=== PATIENT | male | born 1980 | race African-American/Black ===

== ENCOUNTER 2018-06-01 21:59 | Emergency (ER) | payer SELFPAY | END 2018-06-01 23:15 | disposition home or self-care (01) | LOC: ER 23:15 | DX: M54.40 Lumbago with sciatica, unspecified side (principal); I10 Essential (primary) hypertension | CPT/HCPCS: 99283 ==

== ENCOUNTER 2019-11-15 11:09 | Emergency (ER) | payer SELFPAY ==
[~2019-11-15] VITALS: Ht 167.6 cm; Wt 61.2 kg
[~2019-11-15 11:09] MED LIST: METH4TAB2 PO
[2019-11-15] MEDS ORDERED: FAMOTIDINE 20 MG/2 ML VIAL IVP ONE (11:45)
[2019-11-15] MEDS ORDERED: IV NORMAL SALINE 1000ML BAG 1,000 ML IV ONE (11:45)
[2019-11-15] MEDS ORDERED: ONDANSETRON PF 4 MG/2 ML VIAL. IVP ONE (11:45)
[2019-11-15] MEDS ORDERED: MORPHINE SULFATE 10 MG/ML VIAL. IV ONE ×2 (11:45→13:15)
[2019-11-15 11:49] LABS: BASO % 1 % (0-3); EOS % 0 % (0-3); HEMATOCRIT 40.8 % (39.0-53.0); HEMOGLOBIN 14.2 g/dL (13.0-17.5); LYMPH # 1.5 x10^3/uL (1.0-4.8); LYMPH % 30 % (24-48); MEAN CORPUSCULAR HEMOGLOBIN 31 pg (25-35); MEAN CORPUSCULAR HGB CONC 35 g/dL (31-37); MEAN CORPUSCULAR VOLUME 88 fL (79-100); MONO # 0.5 x10^3/uL (0.0-1.1); MONO % 10 % (0-9); NEUT % 59 % (31-73); PLATELET COUNT 298 x10^3/uL (140-400); RED BLOOD COUNT 4.62 x10^6/uL (4.30-5.70); RED CELL DISTRIBUTION WIDTH 13.2 % (11.5-14.5); WHITE BLOOD COUNT 5.1 x10^3/uL (4.0-11.0)
[2019-11-15 11:52] LABS: BILIRUBIN,URINE NEGATIVE (NEG); CLARITY,URINE CLEAR; COLOR,URINE YELLOW; NITRITE,URINE NEGATIVE (NEG); PH,URINE 7.5; PROTEIN,URINE NEGATIVE (NEG-TRACE); UROBILINOGEN,URINE 0.2 mg/dL (0.2 mg/dL)
[2019-11-15 11:55] LABS: SQUAMOUS EPITHELIAL CELL,UR FEW /LPF
[2019-11-15 11:57] LABS: BACTERIA,URINE FEW /HPF (0-FEW); RBC,URINE RARE /HPF (0-2)
[2019-11-15 11:59] LABS: CALCIUM 8.9 mg/dL (8.5-10.1); CREATININE 1.4 mg/dL (0.7-1.3); GFR 67.6
[2019-11-15 12:01] LABS: BARBITURATES NEG (NEG); BENZODIAZEPINES NEG (NEG); CANNABINOIDS POS (NEG); COCAINE NEG (NEG); METHADONE NEG (NEG); OPIATES NEG (NEG); PHENCYCLIDINE NEG (NEG)
[2019-11-15 12:03] LABS: AMPHETAMINE/METHAMPHETAMINE NEG (NEG)
[2019-11-15 12:05] LABS: ALBUMIN 4.5 g/dL (3.4-5.0); TOTAL BILIRUBIN 0.8 mg/dL (0.2-1.0); TOTAL PROTEIN 9.2 g/dL (6.4-8.2)
[2019-11-15] MEDS ORDERED: IOHEXOL 300 MG/ML 100ML VIAL. IV ONE (12:15)
[2019-11-15 12:21] LABS: INFLUENZA A PATIENT NEGATIVE (NEGATIVE); INFLUENZA B PATIENT NEGATIVE (NEGATIVE)
--- NOTE | 2019-11-15 12:53 | RAD ---
Examination: CT of the abdomen pelvis with IV contrast HISTORY: History of abdominal pain COMPARISON: 03/12/2016 TECHNIQUE: Axial CT images of the abdomen pelvis were performed with IV contrast. Coronal and sagittal reformats are performed Exposure: One or more of the following individualized dose reduction techniques were utilized for this examination: 1. Automated exposure control 2. Adjustment of the mA and/or kV according to patient size 3. Use of iterative reconstruction technique FINDINGS: Minimal right lung base atelectasis. No evidence of free air identified in the abdomen. The liver, spleen, adrenals grossly appears unremarkable. The gallbladder is mildly distended. The stomach is mildly distended. The visualized pancreas grossly appears unremarkable. The small bowel is nondilated. Moderate thickened appearance of the wall of the colon throughout with surrounding mild fat stranding. The appendix is not identified. The bilateral kidneys enhance symmetrically. Cystic density identified in the left kidney measuring 1.6 cm probably a cyst. No evidence of lytic bony destructive lesion. IMPRESSION: 1. Moderate thickened appearance of the wall of the colon throughout with surrounding fat stranding likely diffuse colitis. Electronically signed by: Demetri To MD (11/15/2019 12:50 PM) [facility]
[2019-11-15] MEDS ORDERED: CIPROFLOXACIN 400MG PREMIX 200 ML IV ONE (13:15)
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
[2019-11-15] MEDS ORDERED: HYDR-3164 PO (13:58)
[2019-11-15] MEDS ORDERED: CIPR500T94 PO (13:58)
[2019-11-15] MEDS ORDERED: ONDA4TAB12 PO (13:58)
[2019-11-15] MEDS ORDERED: METR500T PO (13:58)
[2019-11-15] MEDS ORDERED: DICY20TA3 PO (13:58)
[2019-11-15] MEDS ORDERED: PROCHLORPERAZINE 10 MG/2 ML VIAL. IV ONE (14:30)
[2019-11-15 15:15] VITALS: BP 122/78
== END 2019-11-15 15:37 | disposition home or self-care (01) ==
LOC: ER 11:09
DX: K52.9 Noninfective gastroenteritis and colitis, unspecified (principal); R11.2 Nausea with vomiting, unspecified; R19.7 Diarrhea, unspecified; R68.83 Chills (without fever); R05 Cough; R10.84 Generalized abdominal pain; I10 Essential (primary) hypertension; Z90.89 Acquired absence of other organs; Z98.890 Other specified postprocedural states; Z79.899 Other long term (current) drug therapy
CPT/HCPCS: 36415; 74177; 80053; 80307; 81001; 83690; 85025; 87804; 96361; 96365; 96367; 96375; 96376; 99285; G0480; J0744; J0780; J2270; J2405; J3490; J7030; Q9967

== ENCOUNTER 2019-11-17 10:15 | Inpatient (IN) | payer SELFPAY ==
[~2019-11-17] VITALS: Ht 160 cm; Wt 60.4 kg
[~2019-11-17 10:15] MED LIST changes: +CIPR500T94 PO; +DICY20TA3 PO; +HYDR-3164 PO; +METR500T PO; +ONDA4TAB12 PO
[2019-11-17 11:03] LABS: BILIRUBIN,URINE NEGATIVE (NEG); CLARITY,URINE CLEAR; COLOR,URINE YELLOW; NITRITE,URINE NEGATIVE (NEG); PROTEIN,URINE NEGATIVE (NEG-TRACE)
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
[2019-11-17 11:09] LABS: BACTERIA,URINE 0 /HPF (0-FEW); RBC,URINE 0 /HPF (0-2); SQUAMOUS EPITHELIAL CELL,UR OCC /LPF; WBC,URINE RARE /HPF (0-4)
[2019-11-17 11:12] LABS: AMPHETAMINE/METHAMPHETAMINE NEG (NEG); BARBITURATES NEG (NEG); BENZODIAZEPINES NEG (NEG); CANNABINOIDS POS (NEG); COCAINE NEG (NEG); METHADONE NEG (NEG); OPIATES NEG (NEG); PHENCYCLIDINE NEG (NEG)
[2019-11-17 11:36] LABS: CREATININE 1.4 mg/dL (0.7-1.3); GFR 67.6; POTASSIUM 4.2 mmol/L (3.5-5.1)
[2019-11-17 11:42] LABS: ALBUMIN 4.5 g/dL (3.4-5.0); TOTAL BILIRUBIN 0.9 mg/dL (0.2-1.0); TOTAL PROTEIN 8.8 g/dL (6.4-8.2)
[2019-11-17 11:43] LABS: BASO % 1 % (0-3); EOS % 0 % (0-3); HEMATOCRIT 38.3 % (39.0-53.0); HEMOGLOBIN 13.5 g/dL (13.0-17.5); LYMPH # 1.7 x10^3/uL (1.0-4.8); LYMPH % 30 % (24-48); MEAN CORPUSCULAR HEMOGLOBIN 31 pg (25-35); MEAN CORPUSCULAR HGB CONC 35 g/dL (31-37); MEAN CORPUSCULAR VOLUME 88 fL (79-100); MONO # 0.6 x10^3/uL (0.0-1.1); MONO % 11 % (0-9); NEUT # 3.2 x10^3/uL (1.8-7.7); NEUT % 59 % (31-73); PLATELET COUNT 334 x10^3/uL (140-400); RED BLOOD COUNT 4.34 x10^6/uL (4.30-5.70); RED CELL DISTRIBUTION WIDTH 12.8 % (11.5-14.5); WHITE BLOOD COUNT 5.5 x10^3/uL (4.0-11.0)
[2019-11-17] MEDS ORDERED: CIPROFLOXACIN 400MG PREMIX 200 ML IV ONE (11:45)
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
[2019-11-17] MEDS ORDERED: IV NORMAL SALINE 1000ML BAG 1,000 ML IV ONE (13:45)
[2019-11-17] MEDS ORDERED: fentaNYL PF VIAL 100 MCG/2 ML VIAL IV PRN (13:45)
[2019-11-17] MEDS ORDERED: ACETAMINOPHEN 325 MG TABLET. PO PRN (13:45)
[2019-11-17] MEDS ORDERED: ONDANSETRON PF 4 MG/2 ML VIAL. IV PRN (13:45)
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
[2019-11-17] MEDS ORDERED: LISI1TAB20 PO (16:29)
--- NOTE | 2019-11-17 16:47 | RAD ---
Examination: Frontal view of the abdomen HISTORY: History of vomiting, abdominal pain, colitis. COMPARISON: None available Findings/ impression: The stomach is mildly distended with air. Air is identified throughout the colon. The bowel gas pattern appears unremarkable. Electronically signed by: Demetri To MD (11/17/2019 4:44 PM) [id number]
[2019-11-17] MEDS: IV 1/2 NORMAL SALINE 1,000 ML IV SCH (17:47)
[2019-11-17 19:00] VITALS: BP 109/66
[2019-11-17] MEDS: CIPROFLOXACIN 400MG PREMIX 200 ML IV SCH (21:17)
[2019-11-17] MEDS: FAMOTIDINE 20 MG/2 ML VIAL IVP SCH (21:17)
[2019-11-17 23:00] VITALS: BP 115/85
[2019-11-18 03:00] VITALS: BP 121/70
[2019-11-18 04:53] LABS: BASO % 1 % (0-3); EOS % 1 % (0-3); HEMATOCRIT 37.5 % (39.0-53.0); HEMOGLOBIN 12.9 g/dL (13.0-17.5); LYMPH # 1.6 x10^3/uL (1.0-4.8); LYMPH % 33 % (24-48); MEAN CORPUSCULAR HEMOGLOBIN 31 pg (25-35); MEAN CORPUSCULAR HGB CONC 34 g/dL (31-37); MEAN CORPUSCULAR VOLUME 90 fL (79-100); MONO # 0.6 x10^3/uL (0.0-1.1); MONO % 13 % (0-9); NEUT # 2.6 x10^3/uL (1.8-7.7); NEUT % 53 % (31-73); PLATELET COUNT 320 x10^3/uL (140-400); RED BLOOD COUNT 4.19 x10^6/uL (4.30-5.70); RED CELL DISTRIBUTION WIDTH 12.9 % (11.5-14.5); WHITE BLOOD COUNT 4.9 x10^3/uL (4.0-11.0)
[2019-11-18 05:07] LABS: CALCIUM 8.7 mg/dL (8.5-10.1); CREATININE 1.4 mg/dL (0.7-1.3); GFR 67.6
[2019-11-18] MEDS: IV 1/2 NORMAL SALINE 1,000 ML IV SCH ×2 (05:33→19:40)
[2019-11-18 07:00] VITALS: BP 120/75
[2019-11-18] MEDS ORDERED: HYDROcodone/APAP 5/325MG 1 TAB TABLET PO PRN (07:45)
[2019-11-18] MEDS ORDERED: ONDANSETRON ODT 4 MG TAB.RAPDIS. PO PRN (07:45)
[2019-11-18] MEDS ORDERED: MORPHINE SULFATE 2 MG/ML VIAL. IV PRN (07:45)
[2019-11-18] MEDS ORDERED: ACETAMINOPHEN/CODEINE 300/30MG TABLET. PO PRN (07:45)
[2019-11-18] MEDS ORDERED: ACETAMINOPHEN 500 MG TABLET PO PRN (07:45)
--- NOTE | 2019-11-18 09:09 | PDOC ---
PROGRESS NOTES Chief Complaint Chief Complaint COlitis, 1st episode FAm HX crohs and COLON CA - no hx personal c scope Daily marijuana use, etoh occ History of Present Illness History of Present Illness FEels better On CLD but no order tray yet NO pain On IV flagyl and IV abx PLAN: Await GI rounds, upgrade diet? Home tmr goal LAbs ok, add esr Vitals Vitals Vital Signs Date Time Temp Pulse Resp B/P (MAP) Pulse Ox O2 Delivery O2 Flow Rate FiO2 11/18/19 07:00 99.0 68 18 120/75 (90) 98 Room Air 99.0 Physical Exam General: Alert, Oriented X3, Cooperative, No acute distress Heart: Regular rate, Normal S1, Normal S2, No murmurs Lungs: Clear Abdomen: Normal bowel sounds, Soft, No tenderness Extremities: No clubbing, No cyanosis, No edema Skin: No rashes, No breakdown Labs LABS Laboratory Tests Test 11/17/19 10:45 11/17/19 11:15 11/18/19 04:30 Urine Collection Type Void Urine Color Yellow Urine Clarity Clear Urine pH 7.0 Urine Specific [place] 1.015 Urine Protein Negative mg/dL (NEG-TRACE) Urine Glucose (UA) Negative mg/dL (NEG) Urine Ketones (Stick) 15 mg/dL (NEG) Urine Blood Negative (NEG) Urine Nitrite Negative (NEG) Urine Bilirubin Negative (NEG) Urine Urobilinogen Dipstick 1.0 mg/dL (0.2 mg/dL) Urine Leukocyte Esterase Negative (NEG) Urine RBC 0 /HPF (0-2) Urine WBC Rare /HPF (0-4) Urine Squamous Epithelial Cells Occ /LPF Urine Bacteria 0 /HPF (0-FEW) Urine Opiates Screen Neg (NEG) Urine Methadone Screen Neg (NEG) Urine Barbiturates Neg (NEG) Urine Phencyclidine Screen Neg (NEG) Urine Amphetamine/Methamphetamine Neg (NEG) Urine Benzodiazepines Screen Neg (NEG) Urine Cocaine Screen Neg (NEG) Urine Cannabinoids Screen Pos (NEG) Urine Ethyl Alcohol Neg (NEG) White Blood Count 5.5 x10^3/uL (4.0-11.0) 4.9 x10^3/uL (4.0-11.0) Red Blood Count 4.34 x10^6/uL (4.30-5.70) 4.19 x10^6/uL (4.30-5.70) Hemoglobin 13.5 g/dL (13.0-17.5) 12.9 g/dL (13.0-17.5) Hematocrit 38.3 % (39.0-53.0) 37.5 % (39.0-53.0) Mean Corpuscular Volume 88 fL (79-100) 90 fL (79-100) Mean Corpuscular Hemoglobin 31 pg (25-35) 31 pg (25-35) Mean Corpuscular Hemoglobin Concent 35 g/dL (31-37) 34 g/dL (31-37) Red Cell Distribution Width 12.8 % (11.5-14.5) 12.9 % (11.5-14.5) Platelet Count 334 x10^3/uL (140-400) 320 x10^3/uL (140-400) Neutrophils (%) (Auto) 59 % (31-73) 53 % (31-73) Lymphocytes (%) (Auto) 30 % (24-48) 33 % (24-48) Monocytes (%) (Auto) 11 % (0-9) 13 % (0-9) Eosinophils (%) (Auto) 0 % (0-3) 1 % (0-3) Basophils (%) (Auto) 1 % (0-3) 1 % (0-3) Neutrophils # (Auto) 3.2 x10^3/uL (1.8-7.7) 2.6 x10^3/uL (1.8-7.7) Lymphocytes # (Auto) 1.7 x10^3/uL (1.0-4.8) 1.6 x10^3/uL (1.0-4.8) Monocytes # (Auto) 0.6 x10^3/uL (0.0-1.1) 0.6 x10^3/uL (0.0-1.1) Eosinophils # (Auto) 0.0 x10^3/uL (0.0-0.7) 0.0 x10^3/uL (0.0-0.7) Basophils # (Auto) 0.0 x10^3/uL (0.0-0.2) 0.0 x10^3/uL (0.0-0.2) Sodium Level 134 mmol/L (136-145) 135 mmol/L (136-145) Potassium Level 4.2 mmol/L (3.5-5.1) 4.0 mmol/L (3.5-5.1) Chloride Level 95 mmol/L (98-107) 98 mmol/L (98-107) Carbon Dioxide Level 29 mmol/L (21-32) 27 mmol/L (21-32) Anion Gap 10 (6-14) 10 (6-14) Blood Urea Nitrogen 16 mg/dL (8-26) 13 mg/dL (8-26) Creatinine 1.4 mg/dL (0.7-1.3) 1.4 mg/dL (0.7-1.3) Estimated GFR (Cockcroft-Gault) 67.6 67.6 BUN/Creatinine Ratio 11 (6-20) Glucose Level 94 mg/dL (70-99) 96 mg/dL (70-99) Calcium Level 9.0 mg/dL (8.5-10.1) 8.7 mg/dL (8.5-10.1) Total Bilirubin 0.9 mg/dL (0.2-1.0) Aspartate Amino Transf (AST/SGOT) 30 U/L (15-37) Alanine Aminotransferase (ALT/SGPT) 32 U/L (16-63) Alkaline Phosphatase 52 U/L (46-116) Total Protein 8.8 g/dL (6.4-8.2) Albumin 4.5 g/dL (3.4-5.0) Albumin/Globulin Ratio 1.0 (1.0-1.7) Lipase 172 U/L (73-393) Ethyl Alcohol Level < 10 mg/dL (0-10) Review of Systems Review of Systems minimal abd pain , no nause emesis, no fevers Assessment and Plan Assessmemt and Plan Problems Medical Problems: (1) Acute colitis Status: Acute Comment Review of Relevant I have reviewed the following items trey (where applicable) has been applied. Labs Laboratory Tests Test 11/17/19 10:45 11/17/19 11:15 11/18/19 04:30 Urine Collection Type Void Urine Color Yellow Urine Clarity Clear Urine pH 7.0 Urine Specific [place] 1.015 Urine Protein Negative mg/dL (NEG-TRACE) Urine Glucose (UA) Negative mg/dL (NEG) Urine Ketones (Stick) 15 mg/dL (NEG) Urine Blood Negative (NEG) Urine Nitrite Negative (NEG) Urine Bilirubin Negative (NEG) Urine Urobilinogen Dipstick 1.0 mg/dL (0.2 mg/dL) Urine Leukocyte Esterase Negative (NEG) Urine RBC 0 /HPF (0-2) Urine WBC Rare /HPF (0-4) Urine Squamous Epithelial Cells Occ /LPF Urine Bacteria 0 /HPF (0-FEW) Urine Opiates Screen Neg (NEG) Urine Methadone Screen Neg (NEG) Urine Barbiturates Neg (NEG) Urine Phencyclidine Screen Neg (NEG) Urine Amphetamine/Methamphetamine Neg (NEG) Urine Benzodiazepines Screen Neg (NEG) Urine Cocaine Screen Neg (NEG) Urine Cannabinoids Screen Pos (NEG) Urine Ethyl Alcohol Neg (NEG) White Blood Count 5.5 x10^3/uL (4.0-11.0) 4.9 x10^3/uL (4.0-11.0) Red Blood Count 4.34 x10^6/uL (4.30-5.70) 4.19 x10^6/uL (4.30-5.70) Hemoglobin 13.5 g/dL (13.0-17.5) 12.9 g/dL (13.0-17.5) Hematocrit 38.3 % (39.0-53.0) 37.5 % (39.0-53.0) Mean Corpuscular Volume 88 fL (79-100) 90 fL (79-100) Mean Corpuscular Hemoglobin 31 pg (25-35) 31 pg (25-35) Mean Corpuscular Hemoglobin Concent 35 g/dL (31-37) 34 g/dL (31-37) Red Cell Distribution Width 12.8 % (11.5-14.5) 12.9 % (11.5-14.5) Platelet Count 334 x10^3/uL (140-400) 320 x10^3/uL (140-400) Neutrophils (%) (Auto) 59 % (31-73) 53 % (31-73) Lymphocytes (%) (Auto) 30 % (24-48) 33 % (24-48) Monocytes (%) (Auto) 11 % (0-9) 13 % (0-9) Eosinophils (%) (Auto) 0 % (0-3) 1 % (0-3) Basophils (%) (Auto) 1 % (0-3) 1 % (0-3) Neutrophils # (Auto) 3.2 x10^3/uL (1.8-7.7) 2.6 x10^3/uL (1.8-7.7) Lymphocytes # (Auto) 1.7 x10^3/uL (1.0-4.8) 1.6 x10^3/uL (1.0-4.8) Monocytes # (Auto) 0.6 x10^3/uL (0.0-1.1) 0.6 x10^3/uL (0.0-1.1) Eosinophils # (Auto) 0.0 x10^3/uL (0.0-0.7) 0.0 x10^3/uL (0.0-0.7) Basophils # (Auto) 0.0 x10^3/uL (0.0-0.2) 0.0 x10^3/uL (0.0-0.2) Sodium Level 134 mmol/L (136-145) 135 mmol/L (136-145) Potassium Level 4.2 mmol/L (3.5-5.1) 4.0 mmol/L (3.5-5.1) Chloride Level 95 mmol/L (98-107) 98 mmol/L (98-107) Carbon Dioxide Level 29 mmol/L (21-32) 27 mmol/L (21-32) Anion Gap 10 (6-14) 10 (6-14) Blood Urea Nitrogen 16 mg/dL (8-26) 13 mg/dL (8-26) Creatinine 1.4 mg/dL (0.7-1.3) 1.4 mg/dL (0.7-1.3) Estimated GFR (Cockcroft-Gault) 67.6 67.6 BUN/Creatinine Ratio 11 (6-20) Glucose Level 94 mg/dL (70-99) 96 mg/dL (70-99) Calcium Level 9.0 mg/dL (8.5-10.1) 8.7 mg/dL (8.5-10.1) Total Bilirubin 0.9 mg/dL (0.2-1.0) Aspartate Amino Transf (AST/SGOT) 30 U/L (15-37) Alanine Aminotransferase (ALT/SGPT) 32 U/L (16-63) Alkaline Phosphatase 52 U/L (46-116) Total Protein 8.8 g/dL (6.4-8.2) Albumin 4.5 g/dL (3.4-5.0) Albumin/Globulin Ratio 1.0 (1.0-1.7) Lipase 172 U/L (73-393) Ethyl Alcohol Level < 10 mg/dL (0-10) Laboratory Tests Test 11/17/19 10:45 11/17/19 11:15 11/18/19 04:30 Urine Collection Type Void Urine Color Yellow Urine Clarity Clear Urine pH 7.0 Urine Specific [place] 1.015 Urine Protein Negative mg/dL (NEG-TRACE) Urine Glucose (UA) Negative mg/dL (NEG) Urine Ketones (Stick) 15 mg/dL (NEG) Urine Blood Negative (NEG) Urine Nitrite Negative (NEG) Urine Bilirubin Negative (NEG) Urine Urobilinogen Dipstick 1.0 mg/dL (0.2 mg/dL) Urine Leukocyte Esterase Negative (NEG) Urine RBC 0 /HPF (0-2) Urine WBC Rare /HPF (0-4) Urine Squamous Epithelial Cells Occ /LPF Urine Bacteria 0 /HPF (0-FEW) Urine Opiates Screen Neg (NEG) Urine Methadone Screen Neg (NEG) Urine Barbiturates Neg (NEG) Urine Phencyclidine Screen Neg (NEG) Urine Amphetamine/Methamphetamine Neg (NEG) Urine Benzodiazepines Screen Neg (NEG) Urine Cocaine Screen Neg (NEG) Urine Cannabinoids Screen Pos (NEG) Urine Ethyl Alcohol Neg (NEG) White Blood Count 5.5 x10^3/uL (4.0-11.0) 4.9 x10^3/uL (4.0-11.0) Red Blood Count 4.34 x10^6/uL (4.30-5.70) 4.19 x10^6/uL (4.30-5.70) Hemoglobin 13.5 g/dL (13.0-17.5) 12.9 g/dL (13.0-17.5) Hematocrit 38.3 % (39.0-53.0) 37.5 % (39.0-53.0) Mean Corpuscular Volume 88 fL (79-100) 90 fL (79-100) Mean Corpuscular Hemoglobin 31 pg (25-35) 31 pg (25-35) Mean Corpuscular Hemoglobin Concent 35 g/dL (31-37) 34 g/dL (31-37) Red Cell Distribution Width 12.8 % (11.5-14.5) 12.9 % (11.5-14.5) Platelet Count 334 x10^3/uL (140-400) 320 x10^3/uL (140-400) Neutrophils (%) (Auto) 59 % (31-73) 53 % (31-73) Lymphocytes (%) (Auto) 30 % (24-48) 33 % (24-48) Monocytes (%) (Auto) 11 % (0-9) 13 % (0-9) Eosinophils (%) (Auto) 0 % (0-3) 1 % (0-3) Basophils (%) (Auto) 1 % (0-3) 1 % (0-3) Neutrophils # (Auto) 3.2 x10^3/uL (1.8-7.7) 2.6 x10^3/uL (1.8-7.7) Lymphocytes # (Auto) 1.7 x10^3/uL (1.0-4.8) 1.6 x10^3/uL (1.0-4.8) Monocytes # (Auto) 0.6 x10^3/uL (0.0-1.1) 0.6 x10^3/uL (0.0-1.1) Eosinophils # (Auto) 0.0 x10^3/uL (0.0-0.7) 0.0 x10^3/uL (0.0-0.7) Basophils # (Auto) 0.0 x10^3/uL (0.0-0.2) 0.0 x10^3/uL (0.0-0.2) Sodium Level 134 mmol/L (136-145) 135 mmol/L (136-145) Potassium Level 4.2 mmol/L (3.5-5.1) 4.0 mmol/L (3.5-5.1) Chloride Level 95 mmol/L (98-107) 98 mmol/L (98-107) Carbon Dioxide Level 29 mmol/L (21-32) 27 mmol/L (21-32) Anion Gap 10 (6-14) 10 (6-14) Blood Urea Nitrogen 16 mg/dL (8-26) 13 mg/dL (8-26) Creatinine 1.4 mg/dL (0.7-1.3) 1.4 mg/dL (0.7-1.3) Estimated GFR (Cockcroft-Gault) 67.6 67.6 BUN/Creatinine Ratio 11 (6-20) Glucose Level 94 mg/dL (70-99) 96 mg/dL (70-99) Calcium Level 9.0 mg/dL (8.5-10.1) 8.7 mg/dL (8.5-10.1) Total Bilirubin 0.9 mg/dL (0.2-1.0) Aspartate Amino Transf (AST/SGOT) 30 U/L (15-37) Alanine Aminotransferase (ALT/SGPT) 32 U/L (16-63) Alkaline Phosphatase 52 U/L (46-116) Total Protein 8.8 g/dL (6.4-8.2) Albumin 4.5 g/dL (3.4-5.0) Albumin/Globulin Ratio 1.0 (1.0-1.7) Lipase 172 U/L (73-393) Ethyl Alcohol Level < 10 mg/dL (0-10) Medications Current Medications Metronidazole 100 ml @ 100 mls/hr Q8HRS IV Last administered on 11/17/19at 13:41; Start 11/17/19 at 14:00; Stop 11/17/19 at 14:15; Status DC Ciprofloxacin/ Dextrose 200 ml @ 200 mls/hr 1X ONCE IV Last administered on 11/17/19at 14:49; Start 11/17/19 at 11:45; Stop 11/17/19 at 12:44; Status DC Ondansetron HCl (Zofran) 4 mg PRN Q8HRS PRN IV NAUSEA/VOMITING Last administered on 11/17/19at 22:02; Start 11/17/19 at 13:45; Stop 11/18/19 at 13:44 Fentanyl Citrate (Fentanyl 2ml Vial) 50 mcg PRN Q1HR PRN IV PAIN; Start 11/17/19 at 13:45; Stop 11/18/19 at 07:46; Status DC Acetaminophen (Tylenol) 650 mg PRN Q4HRS PRN PO FEVER; Start 11/17/19 at 13:45; Stop 11/18/19 at 07:45; Status DC Sodium Chloride 1,000 ml @ 100 mls/hr 1X ONCE IV ; Start 11/17/19 at 13:45; Stop 11/17/19 at 23:44; Status DC Famotidine (Pepcid Vial) 20 mg BID IVP Last administered on 11/17/19at 21:17; Start 11/17/19 at 21:00 Ciprofloxacin/ Dextrose 200 ml @ 200 mls/hr Q12HR IV Last administered on 11/17/19at 21:17; Start 11/17/19 at 21:00 Metronidazole 100 ml @ 100 mls/hr Q8HRS IV Last administered on 11/18/19at 05:33; Start 11/17/19 at 22:00 Sodium Chloride 1,000 ml @ 75 mls/hr [id number] IV Last administered on 11/18/19at 05:33; Start 11/17/19 at 17:00 Acetaminophen/ Codeine Phosphate (Tylenol #3) 1 tab PRN Q6HRS PRN PO MODERATE PAIN; Start 11/18/19 at 07:45 Acetaminophen (Tylenol) 500 mg PRN Q6HRS PRN PO MILD PAIN / TEMP; Start 11/18/19 at 07:45 Morphine Sulfate (Morphine Sulfate) 2 mg PRN Q2HR PRN IV PAIN; Start 11/18/19 at 07:45 Acetaminophen/ Hydrocodone Bitart (Lortab 5/325) 1 tab PRN Q6HRS PRN PO SEVERE PAIN; Start 11/18/19 at 07:45 Ondansetron HCl (Zofran Odt) 4 mg TID PRN PO NAUSEA/VOMITING; Start 11/18/19 at 07:45 Dicyclomine HCl (Bentyl) 20 mg TID PO ; Start 11/18/19 at 09:00 Lisinopril (Prinivil) 20 mg DAILY PO ; Start 11/18/19 at 09:00 Hydrochlorothiazide (Hydrodiuril) 25 mg DAILY PO ; Start 11/18/19 at 09:00 Active Scripts Active Dicyclomine Hcl 20 Mg Tablet 1 Tab PO TID Ondansetron Odt (Ondansetron) 4 Mg Tab.rapdis 1 Tab PO PRN Q6-8HRS [place] 5-325 Tablet (Acetaminophen/Hydrocodone Bitart) 1 Each Tablet 1 Tab PO Q6HRS Flagyl (Metronidazole) 500 Mg Tablet 500 Mg PO TID Cipro (Ciprofloxacin Hcl) 500 Mg Tablet 1 Tab PO BID Medrol (Methylprednisolone) 4 Mg Tab.ds.pk 1 Pkg PO UD Reported Lisinopril-Hctz 20-25 Mg Tab (Lisinopril/Hydrochlorothiazide) 1 Each Tablet 1 Tab PO DAILY Vitals/I & O Vital Sign - Last 24 Hours 11/17/19 11/17/19 11/17/19 11/17/19 11:26 12:30 13:30 14:30 Temp 99.6 99.6 Pulse 74 78 68 76 Resp 18 18 18 18 B/P (MAP) 133/82 (99) 134/80 (98) 120/69 (86) 144/84 (104) Pulse Ox 100 99 99 100 O2 Delivery Room Air Room Air Room Air Room Air 11/17/19 11/17/19 11/17/19 11/18/19 15:30 19:00 23:00 03:00 Temp 98.5 98.5 98.6 98.5 98.5 98.6 Pulse 82 65 74 88 Resp 18 14 16 18 B/P (MAP) 133/86 (102) 109/66 (80) 115/85 (95) 121/70 (87) Pulse Ox 99 98 99 98 O2 Delivery Room Air Room Air Room Air Room Air 11/18/19 07:00 Temp 99.0 99.0 Pulse 68 Resp 18 B/P (MAP) 120/75 (90) Pulse Ox 98 O2 Delivery Room Air Intake and Output 11/17/19 11/17/19 11/18/19 15:00 23:00 07:00 Intake Total 100 ml 1180 ml 100 ml Balance 100 ml 1180 ml 100 ml ALEKSANDR BRITO MD Nov 18, 2019 09:09
[2019-11-18] MEDS: hydroCHLOROthiazide 25 MG TABLET PO SCH (09:24)
[2019-11-18] MEDS: LISINOPRIL 20 MG TABLET PO SCH (09:24)
[2019-11-18] MEDS: FAMOTIDINE 20 MG/2 ML VIAL IVP SCH (09:24)
[2019-11-18] MEDS: DICYCLOMINE HCL 10 MG CAPSULE PO SCH ×3 (09:25→21:06)
[2019-11-18] MEDS: CIPROFLOXACIN 400MG PREMIX 200 ML IV SCH ×2 (09:25→21:06)
--- NOTE | 2019-11-18 10:52 | PDOC ---
Subjective: Subjective: Tolerating diet w/o n/v, abd pain, or diarrhea. Wants to wait til tomorrow to go home. Objective: Vital Signs: Vital Signs Date Time Temp Pulse Resp B/P (MAP) Pulse Ox O2 Delivery O2 Flow Rate FiO2 11/18/19 09:24 68 120/75 11/18/19 07:00 99.0 18 98 Room Air 99.0 Labs: Laboratory Tests Test 11/17/19 11:15 11/18/19 04:30 White Blood Count 5.5 x10^3/uL 4.9 x10^3/uL Red Blood Count 4.34 x10^6/uL 4.19 x10^6/uL Hemoglobin 13.5 g/dL 12.9 g/dL Hematocrit 38.3 % 37.5 % Mean Corpuscular Volume 88 fL 90 fL Mean Corpuscular Hemoglobin 31 pg 31 pg Mean Corpuscular Hemoglobin Concent 35 g/dL 34 g/dL Red Cell Distribution Width 12.8 % 12.9 % Platelet Count 334 x10^3/uL 320 x10^3/uL Neutrophils (%) (Auto) 59 % 53 % Lymphocytes (%) (Auto) 30 % 33 % Monocytes (%) (Auto) 11 % 13 % Eosinophils (%) (Auto) 0 % 1 % Basophils (%) (Auto) 1 % 1 % Neutrophils # (Auto) 3.2 x10^3/uL 2.6 x10^3/uL Lymphocytes # (Auto) 1.7 x10^3/uL 1.6 x10^3/uL Monocytes # (Auto) 0.6 x10^3/uL 0.6 x10^3/uL Eosinophils # (Auto) 0.0 x10^3/uL 0.0 x10^3/uL Basophils # (Auto) 0.0 x10^3/uL 0.0 x10^3/uL Sodium Level 134 mmol/L 135 mmol/L Potassium Level 4.2 mmol/L 4.0 mmol/L Chloride Level 95 mmol/L 98 mmol/L Carbon Dioxide Level 29 mmol/L 27 mmol/L Anion Gap 10 10 Blood Urea Nitrogen 16 mg/dL 13 mg/dL Creatinine 1.4 mg/dL 1.4 mg/dL Estimated GFR (Cockcroft-Gault) 67.6 67.6 BUN/Creatinine Ratio 11 Glucose Level 94 mg/dL 96 mg/dL Calcium Level 9.0 mg/dL 8.7 mg/dL Total Bilirubin 0.9 mg/dL Aspartate Amino Transf (AST/SGOT) 30 U/L Alanine Aminotransferase (ALT/SGPT) 32 U/L Alkaline Phosphatase 52 U/L Total Protein 8.8 g/dL Albumin 4.5 g/dL Albumin/Globulin Ratio 1.0 Lipase 172 U/L Ethyl Alcohol Level < 10 mg/dL Erythrocyte Sedimentation Rate 12 PE: GEN: NAD LUNGS: CTAB HEART: RRR ABD: NABS, S/ND/NT NEURO/PSYCH: A & O 3 A/P: N/v, diarrhea, abd discomfort/bloating - better, stool tests uncollected "Colitis" on recent CT FH colon cancer and Crohn's -- Improved. ?PO atbx DC per primary. Follow-up for colonoscopy as outpt. SHIRA CHRISTINA Nov 18, 2019 10:52
[2019-11-18 11:00] VITALS: BP 103/67
[2019-11-18 15:00] VITALS: BP 102/68
[2019-11-18 19:54] VITALS: BP 120/78
[2019-11-18] MEDS: FAMOTIDINE 20 MG TABLET. PO SCH (21:06)
[2019-11-18 23:24] VITALS: BP 96/60
[2019-11-19 03:32] VITALS: BP 112/71
[2019-11-19 07:00] VITALS: BP 102/70
[2019-11-19] MEDS: LISINOPRIL 20 MG TABLET PO SCH (08:27)
[2019-11-19] MEDS: CIPROFLOXACIN 400MG PREMIX 200 ML IV SCH ×2 (08:27→20:54)
[2019-11-19] MEDS: IV 1/2 NORMAL SALINE 1,000 ML IV SCH ×2 (08:27→22:20)
[2019-11-19] MEDS: hydroCHLOROthiazide 25 MG TABLET PO SCH (08:27)
[2019-11-19] MEDS: DICYCLOMINE HCL 10 MG CAPSULE PO SCH ×3 (08:28→20:54)
--- NOTE | 2019-11-19 09:58 | PDOC ---
PROGRESS NOTES Chief Complaint Chief Complaint IMPRESSION ACUTE COlitis, 1st episode FAm HX crohs and COLON CA - no hx personal c scope Daily marijuana ABUSE POLYSUBSTANCE ABUSE Follow-up for colonoscopy as outpt. 11/19 STILL C/O NAUSEA wants to stay today to see if vomits again History of Present Illness History of Present Illness FEels better CLD NO pain On IV flagyl and IV CIPRO PLAN: GI OK WITH D/C Home SOON goal LAbs ok, esr=12 Follow-up for colonoscopy as outpt. Vitals Vitals Vital Signs Date Time Temp Pulse Resp B/P (MAP) Pulse Ox O2 Delivery O2 Flow Rate FiO2 11/19/19 08:27 77 102/70 11/19/19 08:00 Room Air 11/19/19 07:00 97.9 18 99 97.9 Physical Exam General: Alert, Oriented X3, Cooperative, No acute distress Heart: Regular rate, Normal S1, Normal S2, No murmurs Lungs: Clear Abdomen: Normal bowel sounds, Soft, No tenderness Extremities: No clubbing, No cyanosis, No edema Skin: No rashes, No breakdown Labs LABS Signed PATIENT: ROSA M PEDRO ACCOUNT: [id number] : 1980 LOCATION: [address] [place] [address] AGE: 39 SEX: M EXAM STATUS: ADM IN ORD. PHYSICIAN: SHIRA CHRISTINA REASON: vomiting, abd pain. collitis PROCEDURE: KUB Examination: Frontal view of the abdomen HISTORY: History of vomiting, abdominal pain, colitis. COMPARISON: None available Findings/ impression: The stomach is mildly distended with air. Air is identified throughout the colon. The bowel gas pattern appears unremarkable. Electronically signed by: Demetri To MD (11/17/2019 4:44 PM) [id number] DICTATED and SIGNED BY: DEMETRI TO MD DATE: 11/17/19 1644 Assessment and Plan Assessmemt and Plan Problems Medical Problems: (1) Acute colitis Status: Acute Comment Review of Relevant I have reviewed the following items trey (where applicable) has been applied. Labs Laboratory Tests Test 11/17/19 10:45 11/17/19 11:15 11/18/19 04:30 Urine Collection Type Void Urine Color Yellow Urine Clarity Clear Urine pH 7.0 Urine Specific [employer] 1.015 Urine Protein Negative mg/dL (NEG-TRACE) Urine Glucose (UA) Negative mg/dL (NEG) Urine Ketones (Stick) 15 mg/dL (NEG) Urine Blood Negative (NEG) Urine Nitrite Negative (NEG) Urine Bilirubin Negative (NEG) Urine Urobilinogen Dipstick 1.0 mg/dL (0.2 mg/dL) Urine Leukocyte Esterase Negative (NEG) Urine RBC 0 /HPF (0-2) Urine WBC Rare /HPF (0-4) Urine Squamous Epithelial Cells Occ /LPF Urine Bacteria 0 /HPF (0-FEW) Urine Opiates Screen Neg (NEG) Urine Methadone Screen Neg (NEG) Urine Barbiturates Neg (NEG) Urine Phencyclidine Screen Neg (NEG) Urine Amphetamine/Methamphetamine Neg (NEG) Urine Benzodiazepines Screen Neg (NEG) Urine Cocaine Screen Neg (NEG) Urine Cannabinoids Screen Pos (NEG) Urine Ethyl Alcohol Neg (NEG) White Blood Count 5.5 x10^3/uL (4.0-11.0) 4.9 x10^3/uL (4.0-11.0) Red Blood Count 4.34 x10^6/uL (4.30-5.70) 4.19 x10^6/uL (4.30-5.70) Hemoglobin 13.5 g/dL (13.0-17.5) 12.9 g/dL (13.0-17.5) Hematocrit 38.3 % (39.0-53.0) 37.5 % (39.0-53.0) Mean Corpuscular Volume 88 fL (79-100) 90 fL (79-100) Mean Corpuscular Hemoglobin 31 pg (25-35) 31 pg (25-35) Mean Corpuscular Hemoglobin Concent 35 g/dL (31-37) 34 g/dL (31-37) Red Cell Distribution Width 12.8 % (11.5-14.5) 12.9 % (11.5-14.5) Platelet Count 334 x10^3/uL (140-400) 320 x10^3/uL (140-400) Neutrophils (%) (Auto) 59 % (31-73) 53 % (31-73) Lymphocytes (%) (Auto) 30 % (24-48) 33 % (24-48) Monocytes (%) (Auto) 11 % (0-9) 13 % (0-9) Eosinophils (%) (Auto) 0 % (0-3) 1 % (0-3) Basophils (%) (Auto) 1 % (0-3) 1 % (0-3) Neutrophils # (Auto) 3.2 x10^3/uL (1.8-7.7) 2.6 x10^3/uL (1.8-7.7) Lymphocytes # (Auto) 1.7 x10^3/uL (1.0-4.8) 1.6 x10^3/uL (1.0-4.8) Monocytes # (Auto) 0.6 x10^3/uL (0.0-1.1) 0.6 x10^3/uL (0.0-1.1) Eosinophils # (Auto) 0.0 x10^3/uL (0.0-0.7) 0.0 x10^3/uL (0.0-0.7) Basophils # (Auto) 0.0 x10^3/uL (0.0-0.2) 0.0 x10^3/uL (0.0-0.2) Sodium Level 134 mmol/L (136-145) 135 mmol/L (136-145) Potassium Level 4.2 mmol/L (3.5-5.1) 4.0 mmol/L (3.5-5.1) Chloride Level 95 mmol/L (98-107) 98 mmol/L (98-107) Carbon Dioxide Level 29 mmol/L (21-32) 27 mmol/L (21-32) Anion Gap 10 (6-14) 10 (6-14) Blood Urea Nitrogen 16 mg/dL (8-26) 13 mg/dL (8-26) Creatinine 1.4 mg/dL (0.7-1.3) 1.4 mg/dL (0.7-1.3) Estimated GFR (Cockcroft-Gault) 67.6 67.6 BUN/Creatinine Ratio 11 (6-20) Glucose Level 94 mg/dL (70-99) 96 mg/dL (70-99) Calcium Level 9.0 mg/dL (8.5-10.1) 8.7 mg/dL (8.5-10.1) Total Bilirubin 0.9 mg/dL (0.2-1.0) Aspartate Amino Transf (AST/SGOT) 30 U/L (15-37) Alanine Aminotransferase (ALT/SGPT) 32 U/L (16-63) Alkaline Phosphatase 52 U/L (46-116) Total Protein 8.8 g/dL (6.4-8.2) Albumin 4.5 g/dL (3.4-5.0) Albumin/Globulin Ratio 1.0 (1.0-1.7) Lipase 172 U/L (73-393) Ethyl Alcohol Level < 10 mg/dL (0-10) Erythrocyte Sedimentation Rate 12 (0-15) Medications Current Medications Metronidazole 100 ml @ 100 mls/hr Q8HRS IV Last administered on 11/17/19at 13:41; Start 11/17/19 at 14:00; Stop 11/17/19 at 14:15; Status DC Ciprofloxacin/ Dextrose 200 ml @ 200 mls/hr 1X ONCE IV Last administered on 11/17/19at 14:49; Start 11/17/19 at 11:45; Stop 11/17/19 at 12:44; Status DC Ondansetron HCl (Zofran) 4 mg PRN Q8HRS PRN IV NAUSEA/VOMITING Last administered on 11/17/19at 22:02; Start 11/17/19 at 13:45; Stop 11/18/19 at 13:44; Status DC Fentanyl Citrate (Fentanyl 2ml Vial) 50 mcg PRN Q1HR PRN IV PAIN; Start 11/17/19 at 13:45; Stop 11/18/19 at 07:46; Status DC Acetaminophen (Tylenol) 650 mg PRN Q4HRS PRN PO FEVER; Start 11/17/19 at 13:45; Stop 11/18/19 at 07:45; Status DC Sodium Chloride 1,000 ml @ 100 mls/hr 1X ONCE IV ; Start 11/17/19 at 13:45; Stop 11/17/19 at 23:44; Status DC Famotidine (Pepcid Vial) 20 mg BID IVP Last administered on 11/18/19at 09:24; Start 11/17/19 at 21:00; Stop 11/18/19 at 10:54; Status DC Ciprofloxacin/ Dextrose 200 ml @ 200 mls/hr Q12HR IV Last administered on 11/19/19 08:27; Start 11/17/19 at 21:00 Metronidazole 100 ml @ 100 mls/hr Q8HRS IV Last administered on 11/19/19 06:00; Start 11/17/19 at 22:00 Sodium Chloride 1,000 ml @ 75 mls/hr [id number] IV Last administered on 11/19/19 08:27; Start 11/17/19 at 17:00 Acetaminophen/ Codeine Phosphate (Tylenol #3) 1 tab PRN Q6HRS PRN PO MODERATE PAIN; Start 11/18/19 at 07:45 Acetaminophen (Tylenol) 500 mg PRN Q6HRS PRN PO MILD PAIN / TEMP; Start 11/18/19 at 07:45 Morphine Sulfate (Morphine Sulfate) 2 mg PRN Q2HR PRN IV PAIN; Start 11/18/19 at 07:45 Acetaminophen/ Hydrocodone Bitart (Lortab 5/325) 1 tab PRN Q6HRS PRN PO SEVERE PAIN; Start 11/18/19 at 07:45 Ondansetron HCl (Zofran Odt) 4 mg TID PRN PO NAUSEA/VOMITING Last administered on 11/19/19 09:36; Start 11/18/19 at 07:45 Dicyclomine HCl (Bentyl) 20 mg TID PO Last administered on 11/19/19 08:28; Start 11/18/19 at 09:00 Lisinopril (Prinivil) 20 mg DAILY PO Last administered on 11/19/19 08:27; Start 11/18/19 at 09:00 Hydrochlorothiazide (Hydrodiuril) 25 mg DAILY PO Last administered on 11/19/19 08:27; Start 11/18/19 at 09:00 Famotidine (Pepcid) 20 mg QHS PO Last administered on 11/18/19at 21:06; Start 11/18/19 at 21:00 Active Scripts Active Dicyclomine Hcl 20 Mg Tablet 1 Tab PO TID Ondansetron Odt (Ondansetron) 4 Mg Tab.rapdis 1 Tab PO PRN Q6-8HRS [place] 5-325 Tablet (Acetaminophen/Hydrocodone Bitart) 1 Each Tablet 1 Tab PO Q6HRS Flagyl (Metronidazole) 500 Mg Tablet 500 Mg PO TID Cipro (Ciprofloxacin Hcl) 500 Mg Tablet 1 Tab PO BID Medrol (Methylprednisolone) 4 Mg Tab.ds.pk 1 Pkg PO UD Reported Lisinopril-Hctz 20-25 Mg Tab (Lisinopril/Hydrochlorothiazide) 1 Each Tablet 1 Tab PO DAILY Vitals/I & O Vital Sign - Last 24 Hours 11/18/19 11/18/19 11/18/19 11/18/19 11:00 15:00 19:54 23:24 Temp 98.7 99.0 98.7 98.4 98.7 99.0 98.7 98.4 Pulse 70 69 58 63 Resp 18 18 20 20 B/P (MAP) 103/67 (79) 102/68 (79) 120/78 (92) 96/60 (72) Pulse Ox 100 99 100 100 O2 Delivery Room Air Room Air Room Air Room Air 11/19/19 11/19/19 11/19/19 11/19/19 03:32 07:00 08:00 08:27 Temp 97.9 97.9 97.9 97.9 Pulse 65 77 77 Resp 20 18 B/P (MAP) 112/71 (85) 102/70 (81) 102/70 Pulse Ox 98 99 O2 Delivery Room Air Room Air Room Air DAYAN TOLEDO MD Nov 19, 2019 09:58
[2019-11-19 11:00] VITALS: BP 111/71
[2019-11-19] MEDS: ONDANSETRON PF 4 MG/2 ML VIAL. IVP PRN ×2 (11:50→17:16)
[2019-11-19 15:00] VITALS: BP 125/78
[2019-11-19 19:00] VITALS: BP 121/73
[2019-11-19] MEDS: FAMOTIDINE 20 MG TABLET. PO SCH (20:54)
[2019-11-19] MEDS: LACTOBACILLUS RHAMNOSUS GG 1 CAPSULE. PO SCH (20:54)
[2019-11-19 23:00] VITALS: BP 110/69
--- NOTE | 2019-11-20 01:06 | NUR ---
Patient's peripheral IV went bad while he was receiving his HS dose of Cipro. He is currently refusing to let us put another IV in him, so he has only received about 1/3 of his Cipro dose, and none of his HS Flagyl.
[2019-11-20 03:00] VITALS: BP 113/72
[2019-11-20 05:09] LABS: BASO # 0.1 x10^3/uL (0.0-0.2); BASO % 1 % (0-3); EOS % 1 % (0-3); HEMATOCRIT 39.1 % (39.0-53.0); HEMOGLOBIN 13.5 g/dL (13.0-17.5); LYMPH # 1.7 x10^3/uL (1.0-4.8); LYMPH % 28 % (24-48); MEAN CORPUSCULAR HEMOGLOBIN 31 pg (25-35); MEAN CORPUSCULAR HGB CONC 35 g/dL (31-37); MEAN CORPUSCULAR VOLUME 89 fL (79-100); MONO # 0.7 x10^3/uL (0.0-1.1); MONO % 12 % (0-9); NEUT # 3.5 x10^3/uL (1.8-7.7); NEUT % 59 % (31-73); PLATELET COUNT 416 x10^3/uL (140-400); RED BLOOD COUNT 4.41 x10^6/uL (4.30-5.70); RED CELL DISTRIBUTION WIDTH 12.9 % (11.5-14.5); WHITE BLOOD COUNT 5.9 x10^3/uL (4.0-11.0)
[2019-11-20 05:56] LABS: CALCIUM 9.1 mg/dL (8.5-10.1); CREATININE 1.4 mg/dL (0.7-1.3); GFR 67.6; POTASSIUM 3.8 mmol/L (3.5-5.1)
[2019-11-20] MEDS: CIPROFLOXACIN 400MG PREMIX 200 ML IV SCH (06:52)
[2019-11-20 07:00] VITALS: BP 131/85
[2019-11-20] MEDS: LACTOBACILLUS RHAMNOSUS GG 1 CAPSULE. PO SCH (08:32)
[2019-11-20] MEDS: hydroCHLOROthiazide 25 MG TABLET PO SCH (08:32)
[2019-11-20] MEDS: DICYCLOMINE HCL 10 MG CAPSULE PO SCH (08:33)
[2019-11-20] MEDS: LISINOPRIL 20 MG TABLET PO SCH (08:33)
[2019-11-20] MEDS: IV 1/2 NORMAL SALINE 1,000 ML IV SCH (08:49)
--- NOTE | 2019-11-20 09:11 | PDOC ---
PROGRESS NOTES Chief Complaint Chief Complaint DISCHARGE DX ACUTE COlitis, 1st episode FAm HX crohs and COLON CA - no hx personal c scope Daily marijuana ABUSE POLYSUBSTANCE ABUSE Follow-up for colonoscopy as outpt. 11/19 STILL C/O NAUSEA wants to stay today to see if vomits again 11/20 D/C TODAY, 32 MIN D/C PLANNING TIME History of Present Illness History of Present Illness FEels better CLD NO pain On IV flagyl and IV CIPRO PLAN: GI OK WITH D/C Home SOON goal LAbs ok, esr=12 Follow-up for colonoscopy as outpt. Vitals Vitals Vital Signs Date Time Temp Pulse Resp B/P (MAP) Pulse Ox O2 Delivery O2 Flow Rate FiO2 11/20/19 08:33 86 131/85 11/20/19 08:13 Room Air 11/20/19 07:00 98.8 18 98 98.8 Physical Exam General: Alert, Oriented X3, Cooperative, No acute distress Heart: Regular rate, Normal S1, Normal S2, No murmurs Lungs: Clear Abdomen: Normal bowel sounds, Soft, No tenderness, No hepatosplenomegaly, No masses Extremities: No clubbing, No cyanosis, No edema Skin: No rashes, No breakdown Labs LABS Laboratory Tests Test 11/20/19 04:40 White Blood Count 5.9 x10^3/uL (4.0-11.0) Red Blood Count 4.41 x10^6/uL (4.30-5.70) Hemoglobin 13.5 g/dL (13.0-17.5) Hematocrit 39.1 % (39.0-53.0) Mean Corpuscular Volume 89 fL (79-100) Mean Corpuscular Hemoglobin 31 pg (25-35) Mean Corpuscular Hemoglobin Concent 35 g/dL (31-37) Red Cell Distribution Width 12.9 % (11.5-14.5) Platelet Count 416 x10^3/uL (140-400) Neutrophils (%) (Auto) 59 % (31-73) Lymphocytes (%) (Auto) 28 % (24-48) Monocytes (%) (Auto) 12 % (0-9) Eosinophils (%) (Auto) 1 % (0-3) Basophils (%) (Auto) 1 % (0-3) Neutrophils # (Auto) 3.5 x10^3/uL (1.8-7.7) Lymphocytes # (Auto) 1.7 x10^3/uL (1.0-4.8) Monocytes # (Auto) 0.7 x10^3/uL (0.0-1.1) Eosinophils # (Auto) 0.0 x10^3/uL (0.0-0.7) Basophils # (Auto) 0.1 x10^3/uL (0.0-0.2) Sodium Level 134 mmol/L (136-145) Potassium Level 3.8 mmol/L (3.5-5.1) Chloride Level 98 mmol/L (98-107) Carbon Dioxide Level 28 mmol/L (21-32) Anion Gap 8 (6-14) Blood Urea Nitrogen 10 mg/dL (8-26) Creatinine 1.4 mg/dL (0.7-1.3) Estimated GFR (Cockcroft-Gault) 67.6 Glucose Level 103 mg/dL (70-99) Calcium Level 9.1 mg/dL (8.5-10.1) Assessment and Plan Assessmemt and Plan Problems Medical Problems: (1) Acute colitis Status: Acute Comment Review of Relevant I have reviewed the following items trey (where applicable) has been applied. Labs Laboratory Tests Test 11/18/19 23:30 11/20/19 04:40 Clostridium difficile Toxin B Gene Negative (Negative) White Blood Count 5.9 x10^3/uL (4.0-11.0) Red Blood Count 4.41 x10^6/uL (4.30-5.70) Hemoglobin 13.5 g/dL (13.0-17.5) Hematocrit 39.1 % (39.0-53.0) Mean Corpuscular Volume 89 fL (79-100) Mean Corpuscular Hemoglobin 31 pg (25-35) Mean Corpuscular Hemoglobin Concent 35 g/dL (31-37) Red Cell Distribution Width 12.9 % (11.5-14.5) Platelet Count 416 x10^3/uL (140-400) Neutrophils (%) (Auto) 59 % (31-73) Lymphocytes (%) (Auto) 28 % (24-48) Monocytes (%) (Auto) 12 % (0-9) Eosinophils (%) (Auto) 1 % (0-3) Basophils (%) (Auto) 1 % (0-3) Neutrophils # (Auto) 3.5 x10^3/uL (1.8-7.7) Lymphocytes # (Auto) 1.7 x10^3/uL (1.0-4.8) Monocytes # (Auto) 0.7 x10^3/uL (0.0-1.1) Eosinophils # (Auto) 0.0 x10^3/uL (0.0-0.7) Basophils # (Auto) 0.1 x10^3/uL (0.0-0.2) Sodium Level 134 mmol/L (136-145) Potassium Level 3.8 mmol/L (3.5-5.1) Chloride Level 98 mmol/L (98-107) Carbon Dioxide Level 28 mmol/L (21-32) Anion Gap 8 (6-14) Blood Urea Nitrogen 10 mg/dL (8-26) Creatinine 1.4 mg/dL (0.7-1.3) Estimated GFR (Cockcroft-Gault) 67.6 Glucose Level 103 mg/dL (70-99) Calcium Level 9.1 mg/dL (8.5-10.1) Laboratory Tests Test 11/20/19 04:40 White Blood Count 5.9 x10^3/uL (4.0-11.0) Red Blood Count 4.41 x10^6/uL (4.30-5.70) Hemoglobin 13.5 g/dL (13.0-17.5) Hematocrit 39.1 % (39.0-53.0) Mean Corpuscular Volume 89 fL (79-100) Mean Corpuscular Hemoglobin 31 pg (25-35) Mean Corpuscular Hemoglobin Concent 35 g/dL (31-37) Red Cell Distribution Width 12.9 % (11.5-14.5) Platelet Count 416 x10^3/uL (140-400) Neutrophils (%) (Auto) 59 % (31-73) Lymphocytes (%) (Auto) 28 % (24-48) Monocytes (%) (Auto) 12 % (0-9) Eosinophils (%) (Auto) 1 % (0-3) Basophils (%) (Auto) 1 % (0-3) Neutrophils # (Auto) 3.5 x10^3/uL (1.8-7.7) Lymphocytes # (Auto) 1.7 x10^3/uL (1.0-4.8) Monocytes # (Auto) 0.7 x10^3/uL (0.0-1.1) Eosinophils # (Auto) 0.0 x10^3/uL (0.0-0.7) Basophils # (Auto) 0.1 x10^3/uL (0.0-0.2) Sodium Level 134 mmol/L (136-145) Potassium Level 3.8 mmol/L (3.5-5.1) Chloride Level 98 mmol/L (98-107) Carbon Dioxide Level 28 mmol/L (21-32) Anion Gap 8 (6-14) Blood Urea Nitrogen 10 mg/dL (8-26) Creatinine 1.4 mg/dL (0.7-1.3) Estimated GFR (Cockcroft-Gault) 67.6 Glucose Level 103 mg/dL (70-99) Calcium Level 9.1 mg/dL (8.5-10.1) Medications Current Medications Metronidazole 100 ml @ 100 mls/hr Q8HRS IV Last administered on 11/17/19at 13:41; Start 11/17/19 at 14:00; Stop 11/17/19 at 14:15; Status DC Ciprofloxacin/ Dextrose 200 ml @ 200 mls/hr 1X ONCE IV Last administered on 11/17/19at 14:49; Start 11/17/19 at 11:45; Stop 11/17/19 at 12:44; Status DC Ondansetron HCl (Zofran) 4 mg PRN Q8HRS PRN IV NAUSEA/VOMITING Last administered on 11/17/19at 22:02; Start 11/17/19 at 13:45; Stop 11/18/19 at 13:44; Status DC Fentanyl Citrate (Fentanyl 2ml Vial) 50 mcg PRN Q1HR PRN IV PAIN; Start 11/17/19 at 13:45; Stop 11/18/19 at 07:46; Status DC Acetaminophen (Tylenol) 650 mg PRN Q4HRS PRN PO FEVER; Start 11/17/19 at 13:45; Stop 11/18/19 at 07:45; Status DC Sodium Chloride 1,000 ml @ 100 mls/hr 1X ONCE IV ; Start 11/17/19 at 13:45; Stop 11/17/19 at 23:44; Status DC Famotidine (Pepcid Vial) 20 mg BID IVP Last administered on 11/18/19at 09:24; Start 11/17/19 at 21:00; Stop 11/18/19 at 10:54; Status DC Ciprofloxacin/ Dextrose 200 ml @ 200 mls/hr Q12HR IV Last administered on 11/19/19 20:54; Start 11/17/19 at 21:00 Metronidazole 100 ml @ 100 mls/hr Q8HRS IV Last administered on 11/19/19 13:31; Start 11/17/19 at 22:00 Sodium Chloride 1,000 ml @ 75 mls/hr [id number] IV Last administered on 11/19/19 08:27; Start 11/17/19 at 17:00 Acetaminophen/ Codeine Phosphate (Tylenol #3) 1 tab PRN Q6HRS PRN PO MODERATE PAIN; Start 11/18/19 at 07:45 Acetaminophen (Tylenol) 500 mg PRN Q6HRS PRN PO MILD PAIN / TEMP; Start 11/18/19 at 07:45 Morphine Sulfate (Morphine Sulfate) 2 mg PRN Q2HR PRN IV PAIN; Start 11/18/19 at 07:45 Acetaminophen/ Hydrocodone Bitart (Lortab 5/325) 1 tab PRN Q6HRS PRN PO SEVERE PAIN; Start 11/18/19 at 07:45 Ondansetron HCl (Zofran Odt) 4 mg TID PRN PO NAUSEA/VOMITING Last administered on 11/19/19 09:36; Start 11/18/19 at 07:45 Dicyclomine HCl (Bentyl) 20 mg TID PO Last administered on 11/20/19 08:33; Start 11/18/19 at 09:00 Lisinopril (Prinivil) 20 mg DAILY PO Last administered on 11/20/19 08:33; Start 11/18/19 at 09:00 Hydrochlorothiazide (Hydrodiuril) 25 mg DAILY PO Last administered on 11/20/19 08:32; Start 11/18/19 at 09:00 Famotidine (Pepcid) 20 mg QHS PO Last administered on 11/19/19at 20:54; Start at 21:00 Ondansetron HCl (Zofran) 4 mg PRN Q4HRS PRN IVP NAUSEA/VOMITING Last administered on 11/19/19at 17:16; Start 11/19/19 at 11:45 Lactobacillus Rhamnosus (Culturelle) 1 cap BID PO Last administered on 11/20/19at 08:32; Start 11/19/19 at 21:00 Active Scripts Active Dicyclomine Hcl 20 Mg Tablet 1 Tab PO TID Ondansetron Odt (Ondansetron) 4 Mg Tab.rapdis 1 Tab PO PRN Q6-8HRS [place] 5-325 Tablet (Acetaminophen/Hydrocodone Bitart) 1 Each Tablet 1 Tab PO Q6HRS Flagyl (Metronidazole) 500 Mg Tablet 500 Mg PO TID Cipro (Ciprofloxacin Hcl) 500 Mg Tablet 1 Tab PO BID Medrol (Methylprednisolone) 4 Mg Tab.ds.pk 1 Pkg PO UD Reported Lisinopril-Hctz 20-25 Mg Tab (Lisinopril/Hydrochlorothiazide) 1 Each Tablet 1 Tab PO DAILY Vitals/I & O Vital Sign - Last 24 Hours 11/19/19 11/19/19 11/19/19 11/19/19 11:00 15:00 19:00 20:03 Temp 98.6 98.2 99.1 98.6 98.2 99.1 Pulse 63 63 69 Resp 18 18 18 B/P (MAP) 111/71 (84) 125/78 (94) 121/73 (89) Pulse Ox 100 100 98 O2 Delivery Room Air Room Air Room Air Room Air 11/19/19 11/20/19 11/20/19 11/20/19 23:00 03:00 07:00 08:13 Temp 98.6 97.7 98.8 98.6 97.7 98.8 Pulse 58 79 86 Resp 18 18 18 B/P (MAP) 110/69 (83) 113/72 (86) 131/85 (100) Pulse Ox 96 94 98 O2 Delivery Room Air Room Air Room Air Room Air 11/20/19 08:33 Pulse 86 B/P (MAP) 131/85 DAYAN TOLEDO MD Nov 20, 2019 09:11
[2019-11-20 11:00] VITALS: BP 114/72
--- NOTE | 2019-11-20 11:50 | PDOC3 ---
Discharge Summary Date of Admission: Nov 17, 2019 Date of Discharge: Nov 20, 2019 Follow-Up: 3-5 days Admitting Diagnosis comment: DISCHARGE DX ACUTE COlitis, 1st episode FAm HX crohs and COLON CA - no hx personal c scope Daily marijuana ABUSE POLYSUBSTANCE ABUSE Follow-up for colonoscopy as outpt. 11/19 STILL C/O NAUSEA wants to stay today to see if vomits again 11/20 D/C TODAY, 32 MIN D/C PLANNING TIME History of Present Illness History of Present Illness FEels better REG DIET NO pain On PO flagyl and IV CIPRO PLAN: GI OK WITH D/C Home SOON goal LAbs ok, esr=12 Follow-up for colonoscopy as outpt. Vitals Vitals Vital Signs Date Time Temp Pulse Resp B/P (MAP) Pulse Ox O2 Delivery O2 Flow Rate FiO2 11/20/19 08:33 86 131/85 11/20/19 08:13 Room Air 11/20/19 07:00 98.8 18 98 98.8 Physical Exam General: Alert, Oriented X3, Cooperative, No acute distress Heart: Regular rate, Normal S1, Normal S2, No murmurs Lungs: Clear Abdomen: Normal bowel sounds, Soft, No tenderness, No hepatosplenomegaly, No masses Extremities: No clubbing, No cyanosis, No edema Skin: No rashes, No breakdown FINAL DIAGNOSIS Problems Medical Problems: (1) Acute colitis Status: Acute Brief Hospital Course Mr. Garrett is a 39 old [sex] who presented with [ ACUTE COLITIS] CONDITION AT DISCHARGE: Improved Discharge Medications Current Medications Metronidazole 100 ml @ 100 mls/hr Q8HRS IV Last administered on 11/17/19at 13:41; Start 11/17/19 at 14:00; Stop 11/17/19 at 14:15; Status DC Ciprofloxacin/ Dextrose 200 ml @ 200 mls/hr 1X ONCE IV Last administered on 11/17/19at 14:49; Start 11/17/19 at 11:45; Stop 11/17/19 at 12:44; Status DC Ondansetron HCl (Zofran) 4 mg PRN Q8HRS PRN IV NAUSEA/VOMITING Last administered on 11/17/19at 22:02; Start 11/17/19 at 13:45; Stop 11/18/19 at 13:44; Status DC Fentanyl Citrate (Fentanyl 2ml Vial) 50 mcg PRN Q1HR PRN IV PAIN; Start 11/17/19 at 13:45; Stop 11/18/19 at 07:46; Status DC Acetaminophen (Tylenol) 650 mg PRN Q4HRS PRN PO FEVER; Start 11/17/19 at 13:45; Stop 11/18/19 at 07:45; Status DC Sodium Chloride 1,000 ml @ 100 mls/hr 1X ONCE IV ; Start 11/17/19 at 13:45; Stop 11/17/19 at 23:44; Status DC Famotidine (Pepcid Vial) 20 mg BID IVP Last administered on 11/18/19at 09:24; Start 11/17/19 at 21:00; Stop 11/18/19 at 10:54; Status DC Ciprofloxacin/ Dextrose 200 ml @ 200 mls/hr Q12HR IV Last administered on 11/19/19at 20:54; Start 11/17/19 at 21:00 Metronidazole 100 ml @ 100 mls/hr Q8HRS IV Last administered on 11/19/19at 13:31; Start 11/17/19 at 22:00 Sodium Chloride 1,000 ml @ 75 mls/hr [id number] IV Last administered on 11/19/19 08:27; Start 11/17/19 at 17:00 Acetaminophen/ Codeine Phosphate (Tylenol #3) 1 tab PRN Q6HRS PRN PO MODERATE PAIN; Start 11/18/19 at 07:45 Acetaminophen (Tylenol) 500 mg PRN Q6HRS PRN PO MILD PAIN / TEMP; Start 11/18/19 at 07:45 Morphine Sulfate (Morphine Sulfate) 2 mg PRN Q2HR PRN IV PAIN; Start 11/18/19 at 07:45 Acetaminophen/ Hydrocodone Bitart (Lortab 5/325) 1 tab PRN Q6HRS PRN PO SEVERE PAIN; Start 11/18/19 at 07:45 Ondansetron HCl (Zofran Odt) 4 mg TID PRN PO NAUSEA/VOMITING Last administered on 11/19/19 09:36; Start 11/18/19 at 07:45 Dicyclomine HCl (Bentyl) 20 mg TID PO Last administered on 11/20/19 08:33; Start 11/18/19 at 09:00 Lisinopril (Prinivil) 20 mg DAILY PO Last administered on 11/20/19 08:33; Start 11/18/19 at 09:00 Hydrochlorothiazide (Hydrodiuril) 25 mg DAILY PO Last administered on 11/20/19 08:32; Start 11/18/19 at 09:00 Famotidine (Pepcid) 20 mg QHS PO Last administered on 11/19/19 20:54; Start 11/18/19 at 21:00 Ondansetron HCl (Zofran) 4 mg PRN Q4HRS PRN IVP NAUSEA/VOMITING Last administe red on 11/19/19 17:16; Start 11/19/19 at 11:45 Lactobacillus Rhamnosus (Culturelle) 1 cap BID PO Last administered on 11/20/19 08:32; Start 11/19/19 at 21:00 Active Scripts Active Dicyclomine Hcl 20 Mg Tablet 1 Tab PO TID Ondansetron Odt (Ondansetron) 4 Mg Tab.rapdis 1 Tab PO PRN Q6-8HRS [place] 5-325 Tablet (Acetaminophen/Hydrocodone Bitart) 1 Each Tablet 1 Tab PO Q6HRS Flagyl (Metronidazole) 500 Mg Tablet 500 Mg PO TID Cipro (Ciprofloxacin Hcl) 500 Mg Tablet 1 Tab PO BID Medrol (Methylprednisolone) 4 Mg Tab.ds.pk 1 Pkg PO UD Reported Lisinopril-Hctz 20-25 Mg Tab (Lisinopril/Hydrochlorothiazide) 1 Each Tablet 1 Tab PO DAILY Vital Signs Vital Signs Date Time Temp Pulse Resp B/P (MAP) Pulse Ox O2 Delivery O2 Flow Rate FiO2 11/20/19 08:33 86 131/85 11/20/19 08:13 Room Air 11/20/19 07:00 98.8 18 98 98.8 Labs Laboratory Tests Test 11/18/19 23:30 11/20/19 04:40 Clostridium difficile Toxin B Gene Negative (Negative) White Blood Count 5.9 x10^3/uL (4.0-11.0) Red Blood Count 4.41 x10^6/uL (4.30-5.70) Hemoglobin 13.5 g/dL (13.0-17.5) Hematocrit 39.1 % (39.0-53.0) Mean Corpuscular Volume 89 fL (79-100) Mean Corpuscular Hemoglobin 31 pg (25-35) Mean Corpuscular Hemoglobin Concent 35 g/dL (31-37) Red Cell Distribution Width 12.9 % (11.5-14.5) Platelet Count 416 x10^3/uL (140-400) Neutrophils (%) (Auto) 59 % (31-73) Lymphocytes (%) (Auto) 28 % (24-48) Monocytes (%) (Auto) 12 % (0-9) Eosinophils (%) (Auto) 1 % (0-3) Basophils (%) (Auto) 1 % (0-3) Neutrophils # (Auto) 3.5 x10^3/uL (1.8-7.7) Lymphocytes # (Auto) 1.7 x10^3/uL (1.0-4.8) Monocytes # (Auto) 0.7 x10^3/uL (0.0-1.1) Eosinophils # (Auto) 0.0 x10^3/uL (0.0-0.7) Basophils # (Auto) 0.1 x10^3/uL (0.0-0.2) Sodium Level 134 mmol/L (136-145) Potassium Level 3.8 mmol/L (3.5-5.1) Chloride Level 98 mmol/L (98-107) Carbon Dioxide Level 28 mmol/L (21-32) Anion Gap 8 (6-14) Blood Urea Nitrogen 10 mg/dL (8-26) Creatinine 1.4 mg/dL (0.7-1.3) Estimated GFR (Cockcroft-Gault) 67.6 Glucose Level 103 mg/dL (70-99) Calcium Level 9.1 mg/dL (8.5-10.1) Laboratory Tests Test 11/20/19 04:40 White Blood Count 5.9 x10^3/uL (4.0-11.0) Red Blood Count 4.41 x10^6/uL (4.30-5.70) Hemoglobin 13.5 g/dL (13.0-17.5) Hematocrit 39.1 % (39.0-53.0) Mean Corpuscular Volume 89 fL (79-100) Mean Corpuscular Hemoglobin 31 pg (25-35) Mean Corpuscular Hemoglobin Concent 35 g/dL (31-37) Red Cell Distribution Width 12.9 % (11.5-14.5) Platelet Count 416 x10^3/uL (140-400) Neutrophils (%) (Auto) 59 % (31-73) Lymphocytes (%) (Auto) 28 % (24-48) Monocytes (%) (Auto) 12 % (0-9) Eosinophils (%) (Auto) 1 % (0-3) Basophils (%) (Auto) 1 % (0-3) Neutrophils # (Auto) 3.5 x10^3/uL (1.8-7.7) Lymphocytes # (Auto) 1.7 x10^3/uL (1.0-4.8) Monocytes # (Auto) 0.7 x10^3/uL (0.0-1.1) Eosinophils # (Auto) 0.0 x10^3/uL (0.0-0.7) Basophils # (Auto) 0.1 x10^3/uL (0.0-0.2) Sodium Level 134 mmol/L (136-145) Potassium Level 3.8 mmol/L (3.5-5.1) Chloride Level 98 mmol/L (98-107) Carbon Dioxide Level 28 mmol/L (21-32) Anion Gap 8 (6-14) Blood Urea Nitrogen 10 mg/dL (8-26) Creatinine 1.4 mg/dL (0.7-1.3) Estimated GFR (Cockcroft-Gault) 67.6 Glucose Level 103 mg/dL (70-99) Calcium Level 9.1 mg/dL (8.5-10.1) Allergies Allergies Coded Allergies Type Severity Reaction Last Updated Verified No Known Drug Allergies 05/26/14 No Disposition/Orders: D/C to Home Patient Instructions D/C PLANNING 32 MIN DAYAN TOLEDO MD Nov 20, 2019 11:50
[2019-11-20] MEDS ORDERED: FAMO20TA5 PO (11:52)
[2019-11-20] MEDS ORDERED: LACT1CAP19 PO (11:52)
[2019-11-20] MEDS ORDERED: ACET500T68 PO (11:52)
[2019-11-20] MEDS ORDERED: METR500T PO (11:54)
[2019-11-20] MEDS ORDERED: CIPR500T94 PO (11:54)
--- NOTE | 2019-11-20 11:56 | DISCH ---
DISCHARGE INSTRUCTIONS Condition on Discharge Condition on Discharge: Stable Activity After Discharge Activity Instructions for Disc: Activity as tolerated Lifting Instructions after Dis: No heavy lifting, No pulling or pushing Driving Instructions after Dis: Do not drive today Diet after Discharge Diet after Discharge: Regular Liquid Texture: Thin Liquid Checks after Discharge Checks after discharge: Check blood press - daily Contacting the DRCassi after DC Call your doctor for: If your condition worsens Treatment/Equipment after DC Adaptive Equipment Issued: None DAYAN TOLEDO MD Nov 20, 2019 11:56
--- NOTE | 2019-11-20 12:05 | PDOC ---
Subjective: Subjective: Still here, feels fine. Eating and stooling without issue. Wants to go home. Objective: Vital Signs: Vital Signs Date Time Temp Pulse Resp B/P (MAP) Pulse Ox O2 Delivery O2 Flow Rate FiO2 11/20/19 08:33 86 131/85 11/20/19 08:13 Room Air 11/20/19 07:00 98.8 18 98 98.8 Labs: Laboratory Tests Test 11/20/19 04:40 White Blood Count 5.9 x10^3/uL Red Blood Count 4.41 x10^6/uL Hemoglobin 13.5 g/dL Hematocrit 39.1 % Mean Corpuscular Volume 89 fL Mean Corpuscular Hemoglobin 31 pg Mean Corpuscular Hemoglobin Concent 35 g/dL Red Cell Distribution Width 12.9 % Platelet Count 416 x10^3/uL Neutrophils (%) (Auto) 59 % Lymphocytes (%) (Auto) 28 % Monocytes (%) (Auto) 12 % Eosinophils (%) (Auto) 1 % Basophils (%) (Auto) 1 % Neutrophils # (Auto) 3.5 x10^3/uL Lymphocytes # (Auto) 1.7 x10^3/uL Monocytes # (Auto) 0.7 x10^3/uL Eosinophils # (Auto) 0.0 x10^3/uL Basophils # (Auto) 0.1 x10^3/uL Sodium Level 134 mmol/L Potassium Level 3.8 mmol/L Chloride Level 98 mmol/L Carbon Dioxide Level 28 mmol/L Anion Gap 8 Blood Urea Nitrogen 10 mg/dL Creatinine 1.4 mg/dL Estimated GFR (Cockcroft-Gault) 67.6 Glucose Level 103 mg/dL Calcium Level 9.1 mg/dL C Diff neg, stool cx pending PE: GEN: NAD LUNGS: CTAB HEART: RRR ABD: NABS, S/ND/NT NEURO/PSYCH: A & O 3 A/P: N/v, diarrhea, abd discomfort/bloating - resolved "Colitis" on recent CT FH colon cancer and Crohn's -- DC per primary, outpt colonoscopy. SHIRA CHRISTINA Nov 20, 2019 12:04
--- NOTE | 2019-11-20 12:30 | NUR ---
Discharge instructions and belongings reviewed with patient, verbalized understanding. Patient will be escorted out via ambulation by Sunshine JAMESON accompanied by his girlfriend.
== END 2019-11-20 12:49 | disposition home or self-care (01) | DRG 392 ==
LOC: ER 10:15 → 4 NORTH 12:31
PROVIDERS: ADMIT Internal Medicine; ATTEND Internal Medicine
DX: K52.9 Noninfective gastroenteritis and colitis, unspecified (principal); F12.10 Cannabis abuse, uncomplicated; I10 Essential (primary) hypertension; I80.9 Phlebitis and thrombophlebitis of unspecified site; L73.9 Follicular disorder, unspecified; R13.10 Dysphagia, unspecified; Z80.9 Family history of malignant neoplasm, unspecified; Z82.49 Family history of ischemic heart disease and other diseases of the circulatory system; Z85.038 Personal history of other malignant neoplasm of large intestine; Z90.49 Acquired absence of other specified parts of digestive tract
CPT/HCPCS: 36415; 74018; 80048; 80053; 80307; 81001; 83690; 85025; 85651; 87045; 87493; 96365; 96366; 96368; G0480; J0744; J2405; J3490; Q0162; 99285-25; G0378

== ENCOUNTER 2020-12-04 17:38 | Emergency (ER) | payer SELFPAY ==
[~2020-12-04] VITALS: Ht 170.2 cm; Wt 59.0 kg
[~2020-12-04 17:38] MED LIST changes: +ACET500T68 PO; +FAMO20TA5 PO; +LACT1CAP19 PO; +LISI1TAB20 PO
[2020-12-04] MEDS ORDERED: MECLIZINE HCL 12.5 MG TABLET. PO ONE (18:00)
[2020-12-04] MEDS ORDERED: IV NORMAL SALINE 1000ML BAG 1,000 ML IV ONE (18:00)
[2020-12-04 18:02] LABS: BASO # 0.1 x10^3/uL (0.0-0.2); BASO % 1 % (0-3); EOS # 0.2 x10^3/uL (0.0-0.7); EOS % 2 % (0-3); HEMATOCRIT 33.9 % (39.0-53.0); HEMOGLOBIN 11.6 g/dL (13.0-17.5); LYMPH # 2.8 x10^3/uL (1.0-4.8); LYMPH % 29 % (24-48); MEAN CORPUSCULAR HEMOGLOBIN 30 pg (25-35); MEAN CORPUSCULAR HGB CONC 34 g/dL (31-37); MEAN CORPUSCULAR VOLUME 88 fL (79-100); MONO # 0.8 x10^3/uL (0.0-1.1); MONO % 9 % (0-9); NEUT # 5.8 x10^3/uL (1.8-7.7); NEUT % 60 % (31-73); PLATELET COUNT 330 x10^3/uL (140-400); RED BLOOD COUNT 3.84 x10^6/uL (4.30-5.70); RED CELL DISTRIBUTION WIDTH 12.4 % (11.5-14.5); WHITE BLOOD COUNT 9.6 x10^3/uL (4.0-11.0)
[2020-12-04 18:17] LABS: CREATININE 1.5 mg/dL (0.7-1.3); GFR 62.1; POTASSIUM 3.3 mmol/L (3.5-5.1)
[2020-12-04 18:20] LABS: ALBUMIN 3.6 g/dL (3.4-5.0); ALBUMIN/GLOBULIN RATIO 0.9 (1.0-1.7); MAGNESIUM 2.1 mg/dL (1.8-2.4); TOTAL BILIRUBIN 0.5 mg/dL (0.2-1.0); TOTAL PROTEIN 7.4 g/dL (6.4-8.2)
--- NOTE | 2020-12-04 19:01 | RAD ---
EXAM: CT Head without IV contrast INDICATION: Reason: dizziness / Spl. Instructions: / History: TECHNIQUE: Multi-detector row CT images were obtained of the head without the use of IV contrast. All CT scans performed at this facility utilize dose optimization techniques as appropriate to the exam, including the following: Automated exposure control and adjustment of the mA and/or KV according to patient size (this includes techniques or standardized protocols for targeted exams where dose is ind ication/reason for exam). COMPARISON: None FINDINGS: BRAIN PARENCHYMA: No evidence of acute intraparenchymal hemorrhage or infarct. No abnormal parenchyma l density or mass. VENTRICLES & EXTRA-AXIAL SPACES: Ventricles are within normal limits. Basilar cisterns are patent. N o pathologic extra-axial fluid collection or mass. ORBITS: Orbital contents are unremarkable. SINUSES: Visualized paranasal sinuses and mastoid air cells are clear. OSSEOUS & SOFT TISSUES: Calvarium and skull base are intact. IMPRESSION: Normal CT of the head without contrast. EXAM: XR CHEST 1V, CT HEAD/BRAIN WO INDICATION: Reason: dizziness / Spl. Instructions: / History: . TECHNIQUE: Single view COMPARISON: None FINDINGS: The heart size is upper normal.. The great vessels appear unremarkable. There is no hilar or mediastinal mass. The lungs are clear. There is no pleural effusion or pneumothorax. There are no significant osseous abnormalities. IMPRESSION: No active cardiopulmonary disease. Electronically signed by: Aki Daigle MD (12/04/2020 6:59 PM) [facility] [place]
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
[2020-12-04 19:55] VITALS: BP 127/79
[2020-12-04] MEDS ORDERED: POTASSIUM CHLORIDE 20 MEQ TABLET.ER. PO ONE (20:00)
== END 2020-12-04 20:07 | disposition home or self-care (01) ==
LOC: ER 17:38
DX: R42 Dizziness and giddiness (principal); I10 Essential (primary) hypertension; D64.9 Anemia, unspecified; F12.90 Cannabis use, unspecified, uncomplicated; Z90.89 Acquired absence of other organs; Z98.890 Other specified postprocedural states
CPT/HCPCS: 36415; 70450; 71045; 80053; 83690; 83735; 83880; 84443; 84484; 85025; 96360; 99285; J7030; J8597

== ENCOUNTER 2022-02-09 15:12 | Emergency (ER) | payer SELFPAY ==
[~2022-02-09] VITALS: Ht 167.6 cm; Wt 58.2 kg
[~2022-02-09 15:12] MED LIST changes: +DICY20TA PO; -DICY20TA3 PO; -LISI1TAB20 PO; +LISI1TAB39 PO
[2022-02-09] MEDS ORDERED: diphenhydrAMINE HCL 25 MG CAPSULE PO ONE (16:00)
[2022-02-09] MEDS ORDERED: FAMOTIDINE 20 MG TABLET. PO ONE (16:00)
[2022-02-09] MEDS ORDERED: DEXAMETHASONE 4 MG TABLET PO ONE (16:00)
[2022-02-09 16:37] VITALS: BP 121/66
[2022-02-09] MEDS ORDERED: EPIPEN0.3 MG/0.3 IM (17:18)
[2022-02-09] MEDS ORDERED: PRED50TA PO (17:18)
[2022-02-09] MEDS ORDERED: DIPH25TA24 PO (17:18)
[2022-02-09] MEDS ORDERED: FAMO-63 PO (17:18)
[2022-02-09] MEDS ORDERED: HYDR-2145 PO (17:19)
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
== END 2022-02-09 17:28 | disposition home or self-care (01) ==
LOC: ER 15:12
DX: K14.8 Other diseases of tongue (principal); I10 Essential (primary) hypertension
CPT/HCPCS: 99284; Q0163